=== PATIENT | female | born 1990 | race Caucasian/White ===

== ENCOUNTER 2022-06-14 12:05 | Emergency (ER) | payer OTHER, SELFPAY ==
[2022-06-14 12:19] VITALS: BP 113/82; PULSE 73; RESP 16; TEMP 36.3; O2SAT 100
--- NOTE | 2022-06-14 12:38 | ED.EXTPRO ---
HPI - Extremity Problem General Chief complaint: Extremity Injury, Upper Stated complaint: rt arm pain Time Seen by Provider: 06/14/22 12:30 Source: patient and RN notes reviewed Mode of arrival: ambulatory Limitations: no limitations History of Present Illness HPI Narrative: 31-year-old female presents with concern for right arm pain. She reports 2 to 3-day history of arm pain without injury. She reports pain in the mid arm that radiates to the elbow. Reports when she makes a fist and exacerbates the pain in the arm. 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 She denies intervention. She reports mild swelling to the general lower arm and hand. She denies redness, bruising, warmth, open skin, rash MD Complaint: extremity pain Related Data Home Medications Medication Instructions Recorded Confirmed estradiol 2 mg tablet 1 tablet TID 06/14/22 06/14/22 finasteride 5 mg tablet 0.5 tablet DAILY 06/14/22 06/14/22 gabapentin 800 mg tablet 1 tablet TID 06/14/22 06/14/22 progesterone micronized 100 mg 1 cap DAILY 06/14/22 06/14/22 capsule spironolactone 100 mg tablet 1 tablet DAILY 06/14/22 06/14/22 Allergies Allergy/AdvReac Type Severity Reaction Status Date / Time No Known Allergies Allergy Verified 06/14/22 12:26 Review of Systems Review of Systems: CONSTITUTIONAL: Denies malaise, chills, sweats, or fever. CARDIOVASCULAR: Denies chest pain, palpitations, or edema. RESPIRATORY: Denies cough or dyspnea. SKIN: Denies rash or itching, bruising, redness, swelling. MUSCULOSKELETAL: Reports right arm and elbow pain NEUROLOGIC: Denies numbness, weakness All systems reviewed & are unremarkable except as noted in HPI and below PMFSH Comments At time of signature, agree with nursing past medical, surgical, social and family history. There is no relevant family history pertinent to the presenting complaint Exam Narrative: GENERAL: Well-appearing, well-nourished, and in no acute distress. HEAD: Normocephalic, atraumatic. EYES: PERRLA, conjunctivae clear NECK: Supple. CHEST: Speaks in full sentences. No respiratory distress. HEART: Regular rate and rhythm. Normal and equal peripheral pulses. EXTREMITIES: Right arm, hand, digits have has normal strength and sensation, normal range of motion. Very mild lower arm edema, no erythema or ecchymosis. 5/5 strength with elbow, wrist and digit flexion and extension. Normal sensation with sensitivity to light touch and pain. No point tenderness. No open wounds, no skin tenting, no devitalized tissue or atrophy, no trophic changes, no obvious deformity, alignment normal, nearby joints and structures intact. Distal pulses palpable and equal bilaterally, skin warm, dry, pink. Capillary refill less than 3 seconds. SKIN: Warm, dry, no rash. NEURO: Alert and oriented x3. PSYCH: Normal mood and affect Course Course Emergency Course: Patient is aware of diagnosis, understands and agrees to treatment plan. Anticipatory guidance given. Patient agrees to follow-up as directed and is aware of reasons to seek care at the emergency department. Portions of this record may have been created with voice recognition software Level of Care: Express Care Visit Vital Signs Vital signs: Vital Signs Temperature 97.4 F L 06/14/22 12:19 Pulse Rate 73 06/14/22 12:19 Respiratory Rate 16 06/14/22 12:19 Blood Pressure 113/82 06/14/22 12:19 Pulse Oximetry 100 06/14/22 12:19 Oxygen Delivery Room Air 06/14/22 12:19 Temperature 97.4 F L 06/14/22 12:19 Pulse Rate 73 06/14/22 12:19 Respiratory Rate 16 06/14/22 12:19 Blood Pressure 113/82 06/14/22 12:19 Pulse Oximetry 100 06/14/22 12:19 Oxygen Delivery Room Air 06/14/22 12:19 Reviewed. MDM - Extremity (Nontraumatic) MDM Narrative Medical decision making narrative: Patients pain is consistent with musculoskeletal etiology. No signs of neurological or vascular compromise on exam. Compartments and tissues are sof
== END 2022-06-14 12:48 | disposition home or self-care (01) ==
PROVIDERS: Emergency Provider Nurse Practitioner
DX: M77.11 Lateral epicondylitis, right elbow (principal)
CPT/HCPCS: 99203; G0463